=== PATIENT | male | born 1985 | race Caucasian/White ===

== ENCOUNTER → 2022-11-24 15:07 | Outpatient (CLI) | payer OTHER, SELFPAY ==
--- NOTE | ~2022-11-24 | MR_ITS ---
MRI of the right shoulder Technique: Axial proton-density fat-sat images, coronal proton density fat-sat and T2 fat-sat images, and sagittal T1-weighted and T2 fat-sat images were acquired. Clinical History: Chronic pain Findings: No significant degenerative changes AC joint. No subacromial spur. Coracoclavicular, coraco acromial, and coracohumeral ligaments are intact. Supraspinatus and infraspinatus tendons are intact, without partial or full-thickness tear. Subscapul jacqui tendon is intact with minimal tendinosis. Tendon of the long head of the biceps is intact. There is mild degenerative attenuation of the labrum anteriorly and posteriorly without discrete, det ached labral tear. Inferomedial humeral head osteophyte is present. There is extensive moderate chondromalacia the humer al head. Inferior glenohumeral ligament is intact. Small to moderate glenohumeral joint effusion is p resent with probable small amount of debris in the axillary pouch. There is a larger loose body in th e subscapularis recess, measuring 1.3 cm in diameter (series 4 image 20). No muscle atrophy or edema identified. Impression: Moderate osteoarthritis of the glenohumeral joint, as detailed above, with associated 1.3 cm loose calixto dy in the subscapularis recess, as well as more particulate debris in the axillary pouch. Small to moderate glenohumeral joint effusion. Degenerative attenuation of the labrum without definite discrete, detached labral tear. Reviewed, dictated and finalized at [facility]. Impression: Moderate osteoarthritis of the glenohumeral joint, as detailed above, with asso ciated 1.3 cm loose body in the subscapularis recess, as well as more particula te debris in the axillary pouch. Small to moderate glenohumeral joint effusion. Degenerative attenuation of the labrum without definite discrete, detached labr al tear.
== END ==
PROVIDERS: PCP Family Medicine Sports Medicine; Visit Provider Family Medicine Sports Medicine
DX: M25.511 Pain in right shoulder (principal); G89.29 Other chronic pain; M19.011 Primary osteoarthritis, right shoulder; M75.101 Unspecified rotator cuff tear or rupture of right shoulder, not specified as traumatic; M75.41 Impingement syndrome of right shoulder; M75.21 Bicipital tendinitis, right shoulder; M25.411 Effusion, right shoulder
CPT/HCPCS: 73221